=== PATIENT | female | born 1950 | race Caucasian/White ===

== ENCOUNTER 2024-01-28 13:58 | Outpatient (CLI) | payer MEDICARE | END 2024-01-28 13:59 | disposition home or self-care (01) | LOC: BICCT 13:58 | PROVIDERS: ATTEND Family Medicine | DX: Z12.2 Encounter for screening for malignant neoplasm of respiratory organs (principal); I70.90 Unspecified atherosclerosis; R91.1 Solitary pulmonary nodule; I51.7 Cardiomegaly; I31.39 Other pericardial effusion (noninflammatory); Z87.891 Personal history of nicotine dependence | CPT/HCPCS: 71271 ==

== ENCOUNTER 2024-07-27 10:31 | Outpatient (CLI) | payer MEDICARE | END 2024-07-27 10:32 | disposition home or self-care (01) | LOC: BICCT 10:31 | PROVIDERS: ATTEND Family Medicine | DX: R91.1 Solitary pulmonary nodule (principal) | CPT/HCPCS: 36415; 71260; 82565 ==

== ENCOUNTER 2025-08-10 12:53 | Outpatient (CLI) | payer MEDICARE | END 2025-08-10 12:54 | disposition home or self-care (01) | LOC: BICCT 12:53 | PROVIDERS: ATTEND Family Medicine | DX: Z12.2 Encounter for screening for malignant neoplasm of respiratory organs (principal); I31.39 Other pericardial effusion (noninflammatory); I25.10 Atherosclerotic heart disease of native coronary artery without angina pectoris; Z87.891 Personal history of nicotine dependence | CPT/HCPCS: 71271 ==